=== PATIENT | female | born 1970 | race Caucasian/White ===

== ENCOUNTER → 2017-03-20 | Outpatient (CLI) | payer OTHER ==
[~2017-03-20] MED LIST: AMOX-291 PO; BUPR-86 PO
== END | disposition home or self-care (01) ==
LOC: CFH 12:33
PROVIDERS: ATTEND Obstetrics & Gynecology Maternal & Fetal Medicine
DX: Z12.31 Encounter for screening mammogram for malignant neoplasm of breast (principal)
CPT/HCPCS: G0202

== ENCOUNTER 2019-12-08 07:55 | Outpatient (CLI) | payer OTHER | END 2019-12-08 23:59 | disposition home or self-care (01) | LOC: CFH 07:55 | PROVIDERS: ATTEND Obstetrics & Gynecology Maternal & Fetal Medicine | DX: Z12.31 Encounter for screening mammogram for malignant neoplasm of breast (principal); N64.89 Other specified disorders of breast | CPT/HCPCS: 77063; 77067 ==

== ENCOUNTER 2021-04-18 12:04 | Outpatient (CLI) | payer OTHER | END 2021-04-18 23:59 | disposition home or self-care (01) | LOC: CFH 12:04 | PROVIDERS: ATTEND Nurse Practitioner Family | DX: Z12.31 Encounter for screening mammogram for malignant neoplasm of breast (principal); Z12.39 Encounter for other screening for malignant neoplasm of breast | CPT/HCPCS: 76641; 77063; 77067 ==

== ENCOUNTER → 2021-06-09 | Outpatient (CLI) | payer OTHER | END | disposition home or self-care (01) | LOC: CFH 10:34 | PROVIDERS: ATTEND Nurse Practitioner Family | DX: N63.15 Unspecified lump in the right breast, overlapping quadrants (principal) | CPT/HCPCS: 76642 ==

== ENCOUNTER 2021-08-01 10:16 | Day surgery (SDC) | payer OTHER ==
[~2021-08-01] VITALS: Ht 165.1 cm; Wt 60.7 kg
[2021-08-01 12:45] VITALS: BP 147/87
== END 2021-08-01 15:31 | disposition home or self-care (01) ==
LOC: CFH 10:16 → EDSTATUS 13:00 → OUT 15:31
PROVIDERS: ATTEND Surgery
DX: N63.15 Unspecified lump in the right breast, overlapping quadrants (principal); D24.1 Benign neoplasm of right breast; Z20.822 Contact with and (suspected) exposure to COVID-19; Z82.49 Family history of ischemic heart disease and other diseases of the circulatory system; Z83.3 Family history of diabetes mellitus
CPT/HCPCS: 19285; 19301; 76098; 77065; 87635; 88305; J0690; J1885; J2250; J2405; J2704; J3010; J7120